=== PATIENT | female | born 1995 ===

== ENCOUNTER 2021-06-27 23:03 | Emergency (ER) | payer OTHER ==
--- OUTSIDE RECORDS SUMMARY | 2021-06-27 23:06 | XMS REPORT | Continuity of Care Document ---
:1995 Author Organization [facility] t Address [address] [place] [address] [place] [address] Care Team Providers Name Role Phone Yrn Hanson Primary Care Physician Antonieta Hanley Attending Clinician Unavailable Mateo CALHOUN, Yrn Attending Clinician Pedro BROOKS A Attending Clinician Provider, Temp Attending Clinician Unavailable Juan SANABRIA Attending Clinician Unavailable Faculty, [facility] M[facility] Attending Clinician Unavailable Doctor Unassigned, Name Attending Clinician Unavailable G_Papмарина Attending Clinician Unavailable Antonieta Hanley Admitting Clinician Unavailable Kirstie Admitting Clinician Unavailable Payers Payer Name Policy Type Policy Number Effective Date Expiration Date John delarosa [facility] [id number] 2016 00:00:00 [employer] (MEDICAID HMO) Problems Condition Condition Condition Status Onset Resolution Last Treating Co mments Source Name Details Category Date Date Treatment Clinician Date Urinary Urinary Disease Active Univers incontinen incontinen 6-22 it y of ce, ce, 00:00: [place] unspecifie unspecifie 00 Me dical d type d type Branch Vaginal Vaginal Disease Active Univers odor odor 6-22 ity of 00:00: [place] 00 [facility] COVID-19 COVID-19 Disease Active 2019-07 Unive rs virus IgG virus IgG 1-20 ity of antibody antibody 00:00: [place] detected detected 00 Medica l Branch History of History of Disease Active 2019-07 U nivers substance substance - ity of abuse abuse 00:00: [place] [facility] History of History of Disease Active 2013-07 U nivers depression depression 1-20 it y of 00:00: [place] [facility] Chlamydia Chlamydia Disease Active Uni vers trachomati trachomati 2-26 it y of s s 00:00: [place] infection infection [facility] of lower of lower Branch genitourin genitourin robert sites robert sites Tobacco Tobacco Disease Active Univers use use 5- ity of disorder disorder 00:00: [address] Generalize Generalize Disease Active U nivers d anxiety d anxiety 11-25 ity of disorder disorder 00:00: [address] Allergies, Adverse Reactions, Alerts Allergy Allergy Status Severity Reaction(s) Onset Inactive Treating Comm ents Source Name Type Date Date Clinician coconut FA Active SV [facility] 08-25 [place] 00:00: [address] coconut FA Active SV THROAT [facility] CLOSES/RASHE 08-25 West S 00:00: [address] NO KNOWN Drug Active Univers ALLERGIE Class ity of S [facility] Social History Social Habit Start Date Stop Date Quantity Comments Source History of tobacco 2009-03-09 Cigarette Smoker University of use 00:00:00 [facility] Exposure to Not sure University of SARS-CoV-2 (event) [facility] Alcohol intake 2021-06-03 2021-06-03 Current University of 00:00:00 00:00:00 non-drinker of [facility] alcohol Branch (finding) Tobacco Comment 2020-06-13 2020-06-13 1/2 pack a day Unive rsity of 00:00:00 00:00:00 [facility] Tobacco use and 2012-11-25 2012-11-25 Never used Universit y of exposure 00:00:00 00:00:00 [facility] Cigarettes smoked 2012-11-25 2012-11-25 Univers ity of current (pack per 00:00:00 00:00:00 [facility] ) - Reported Branch Cigarette 2012-11-25 2012-11-25 University of pack-years 00:00:00 00:00:00 [facility] Sex Assigned At [birth year] Universit y of 00:00:00 00:00:00 [facility] Smoking Status Start Date Stop Date Source Current every day smoker 2012-11-25 00:00:00 Uni versity of [facility] Medications Ordered Filled Start Stop Current Ordering Indication Dosage Frequency Signature Comments Components Source Medication Medication Date Date Medication? Clinician (SIG) Name Name bentley 2020-07- Yes [id number] 1000mg Take 2 Univers n 08-04 tablets by ity of (ZITHROMAX) 00:00: 05:59 mouth once [place] 500 mg 00 :00 now for 1 Medical tablet dose. Branch metroNIDAZO 2020-07- Yes [id number] 500mg Take 1 Univers LE 500 mg 08-03 tablet by ity of tablet 00:00: 05:59 mouth 2 [place] 00 :00 (two) Medical times Branch daily for 7 days. metroNIDAZO 2020-07- Yes [id number] 500mg Take 1 Univers LE 500 mg 08-03 tablet by ity of tablet 00:00: 05:59 mouth 2 [place] 00 :00 (two) Medical times Branch daily for 7 days. metroNIDAZO 2020-07- Yes [id number] 500mg Take 1 Univers LE 500 mg 08-03 tablet by ity of tablet 00:00: 05:59 mouth 2 [place] 00 :00 (two) Medical times Branch daily for 7 days. metroNIDAZO 2020-07- No [id number] 500mg Take 1 Univers LE 500 mg 08-03 tablet by ity of tablet 00:00: 00:00 mouth 2 [place] 00 :00 (two) Medical times Branch daily for 7 days. albuterol 2019-07 Yes [id number] 2{puff} Inhale 2 Univers 90 1-19 Puffs ity of mcg/actuati 00:00: every 6 Rizwan as on inhaler 00 (six) Medical hours as Branch needed for Wheezing or Shortness of Breath. albuterol 2019-07 Yes [id number] 2{puff} Inhale 2 Univers 90 1-19 Puffs ity of mcg/actuati 00:00: every 6 Rizwan as on inhaler 00 (six) Medical hours as Branch needed for Wheezing or Shortness of Breath. albuterol 2019-07 Yes [id number] 2{puff} Inhale 2 Univers 90 1-19 Puffs ity of mcg/actuati 00:00: every 6 [place]izwan as on inhaler 00 (six) Medical hours as Branch needed for Wheezing or Shortness of Breath. Immunizations Ordered Immunization Filled Immunization Date Status Commen ts Source Name Name [facility] 2018-04-27 Completed University of 00:00:00 [facility] TDAP 2018-04-27 Completed University of 00:00:00 [facility] TDAP 2018-04-27 Completed University of 00:00:00 [facility] HPV 2009-08-09 Completed University of 00:00:00 [facility] HEPATITIS A 2009-08-09 Completed University of 00:00:00 [facility] HPV 2009-08-09 Completed University of 00:00:00 [facility] HEPATITIS A 2009-08-09 Completed University of 00:00:00 [facility] HPV 2009-08-09 Completed University of 00:00:00 [facility] HEPATITIS A 2009-08-09 Completed University of 00:00:00 [facility] HPV 2008-11-23 Completed University of 00:00:00 [facility] HPV 2008-11-23 Completed University of 00:00:00 [facility] HPV 2008-11-23 Completed University of 00:00:00 [facility] HEPATITIS A 2008-10-30 Completed University of 00:00:00 [facility] Meningococcal 2008-10-30 Completed University of Vaccine 00:00:00 [facility] Td 2008-10-30 Completed University of 00:00:00 [facility] Varicella 2008-10-30 Completed University of (varivax)(chicken 00:00:00 [place] M edical pox) Branch HEPATITIS A 2008-10-30 Completed University of 00:00:00 [facility] Meningococcal 2008-10-30 Completed University of Vaccine 00:00:00 [facility] Td 2008-10-30 Completed University of 00:00:00 [facility] Varicella 2008-10-30 Completed University of (varivax)(chicken 00:00:00 [facility] edical pox) Branch HEPATITIS A 2008-10-30 Completed University of 00:00:00 [facility] Meningococcal 2008-10-30 Completed University of Vaccine 00:00:00 [facility] Td 2008-10-30 Completed University of 00:00:00 [facility] Varicella 2008-10-30 Completed University of (varivax)(chicken 00:00:00 [facility] edical pox) Branch Rubella 2008-09-11 Completed University of 00:00:00 [facility] HPV 2008-09-11 Completed University of 00:00:00 [facility] Rubella 2008-09-11 Completed University of 00:00:00 [facility] HPV 2008-09-11 Completed University of 00:00:00 [facility] Rubella 2008-09-11 Completed University of 00:00:00 [facility] HPV 2008-09-11 Completed University of 00:00:00 [facility] Vital Signs Vital Name Observation Time Observation Value Comments Source Systolic blood 2021-06-03 16:51:00 126 mm[Hg] Univer sity of pressure [facility] Diastolic blood 2021-06-03 16:51:00 85 mm[Hg] Unive rsity of [facility] Heart rate 2021-06-03 16:51:00 95 /min [facility] Body temperature 2021-06-03 16:51:00 36.67 Kayla [facility] [place] [facility] Respiratory rate 2021-06-03 16:51:00 18 /min [facility] Body height 2021-06-03 16:51:00 175.3 cm [facility] Body weight 2021-06-03 16:51:00 95.437 kg [facility] BMI 2021-06-03 16:51:00 31.07 kg/m2 [facility] Procedures Procedure Date / Time Performed Performing Clinician Mckenna tineo [id number] 2020-08-28 00:00:00 [facility] [id number] 2020-08-28 00:00:00 [facility] Encounters Start End Encounter Admission Attending Care Care Encounter Source Date/Time Date/Time Type Type Clinicians Facility Department ID 2020-08-25 Inpatient Nguy[facility]n [facility] [id number] [facility] 03:19:00 Ratna [id number] [facility] 2021-06-06 2021-06-06 Telephone Mateo [facility] [id number] [facility] 00:00:00 00:00:00 Yuridia Pool ETCHER APPRENTICE [id number] it y of REGIONAL [id number] [place] as MATERNAL [id number] Med ical & CHILD [address] [place] [address] 2021-06-04 2021-06-04 [facility] [id number] [facility] 00:00:00 00:00:00 Management Heather Martinez ETCHER APPRENTICE [id number] ity of REGIONAL [id number] [place] as MATERNAL [id number] Med ical & CHILD [address] [place] [address] 2021-06-03 2021-06-03 Office Provider, [facility] 1 .2.840.114 [id number] Univers 10:42:58 11:27:45 Visit Heather Sanabria ETCHER APPRENTICE [id number] 0 ity of REGIONAL [id number] [place]iz[place] as MATERNAL [id number] Med ica & CHILD [address] [place] [address] 2021-06-03 2021-06-03 Outpatient Shalonda SANABRIA [facility] [id number] [facility] 10:00:00 11:27:45 HEATHER jean [facility] 2020-08-25 2020-08-25 Outpatient LINDA HanleyWU REFE [id number] [facility] 04:49:00 04:49:[id number] [facility] 2020-08-09 2020-08-09 Telephone Mateo [facility] 1.2.840.114 [id number] 00:00:00 00:00:00 Yuridia Pool ETCHER APPRENTICE [id number] REGIONAL [id number] MATERNAL [id number] & CHILD [address] [place] [address] 2020-07-25 2020-07-25 [facility] 1.2.160.410 [id number] 00:00:00 00:00:00 (Out) Yuridia N ETCHER APPRENTICE [id number] REGIONAL [id number] MATERNAL [id number] & CHILD [address] [facility] 2020-06-24 2020-06-24 [facility] 1.2.840.114 [id number] 08:31:43 09:01:43 ne Visit [facility] Rmchp ETCHER APPRENTICE 350.1.13.10 [facility] REGIONAL 4.2.7.2.686 MATERNAL [id number] & CHILD [address] [facility] 2020-06-19 2020-06-19 Telephone [facility] 1.2.840.114 [id number] 00:00:00 00:00:00 Yuridia N ETCHER APPRENTICE [id number] REGIONAL 4.2.7.2.686 MATERNAL [id number] & CHILD [address] [facility] 2020-06-17 2020-06-17 [facility] [id number] 00:00:00 00:00:00 Yuridia N ETCHER APPRENTICE [id number] REGIONAL 4.2.7.2.686 MATERNAL [id number] & CHILD 107 [facility] 2020-06-14 2020-06-14 [facility] 1.2.840.114 [id number] 00:00:00 00:00:00 Yuridia N ETCHER APPRENTICE [id number] REGIONAL [id number] MATERNAL [id number] & CHILD 107 [facility] 2020-06-13 2020-06-13 Initial [facility] [id number] 13:46:41 14:44:05 Yuridia N ETCHER APPRENTICE 350.1.13.10 Visit REGIONAL 4.2.7.2.686 MATERNAL [id number] & CHILD 107 [facility] 2020-06-13 2020-06-13 Orders Doctor GARCIA 1.2.840.114 [id number] 00:00:00 00:00:00 Only Unassigned, MICHEL 350.1.13.10 [place] [facility] 4.2.7.2.686 [id number] 2020-04-08 2020-04-08 Outpatient G_Pappas [facility] 2019 [place] 02:34:00 02:34:00 [facility] 2020-04-08 2020-04-08 Outpatient G_Pappas [facility] 2019 [place] 02:34:00 02:34:00 [facility] 2020-04-08 2020-04-08 Outpatient G_Pappas [facility] 2019 [place] 02:34:00 02:34:00 1014 [facility] 2020-01-16 2020-01-16 Patient Doctor [facility] 1.2.840.114 [id number] 00:00:00 00:00:00 Secure Msg Unassigned, ETCHER APPRENTICE [id number] [place] [facility] [id number] MATERNAL [id number] & CHILD 107 [facility] 2019-03-13 2019-03-13 Telephone Mateo [facility].2.840.114 [id number] 00:00:00 00:00:00 Yuridia Pool ETCHER APPRENTICE [id number] [facility] [id number] MATERNAL [id number] & CHILD 107 [facility] 2019-03-09 2019-03-09 Office [facility] [id number] 09:43:57 13:23:04 Visit Yuridia Pool ETCHER APPRENTICE 350.1.13.10 [place] [id number] MATERNAL [id number] & CHILD 107 [facility] Results Test Description Test Time Test Comments Results Result Comments Source PLACENTA THIRD TRIMESTER 2020-09-02 08:34:00 Test Item Value Reference Range Interpretation Comme nts PLACENTA RUN DATE: THIRD 09/02/20 [facility] PAGE 1 RUN TIME: 1525 TRIMESTER Specimen Inquiry RUN USER: INTERFACE (test code = PLACIII) PATIENT: ADITYA HOROWITZ LOC: KWADWO U #: [id number] AGE/SX: ROOM: [facility] RE08/25/20REG DR: Myranda Rebollar MD : 89 BED: A DIS: 08/31/20 STATUS: DIS IN TLOC: SPEC #: [id number] RECD: STATUS: KIRK BETY #: [id number] LANCE: 08/28/20- SUBM DR: Myranda Rebollar MD ENTERED: 08/29/20 SP TYPE: PLACIII JOSE CARLOS DR: ORDERED: LEVEL V SURGICA CODES: [id number] - PLACENTA, NOS PROCEDURES: LEVEL V SURGICA (Incomplete) TISSUES: PLACENTA, NOS - PLACENTA CLINICAL HISTORY 25 year old, IUP @ 34.2 weeks, section , NRFHT (magy) FINAL DIAGNOSIS Placenta, 34.2 weeks gestational age, section: - third trimester placenta, 505 gms (greater than 90th percentile) - small villous infarcts and intervillous thrombi - mild chronic deciduitis - meconium macrophages within mem branes - delayed villous maturation - velamentously inserted trivascular umbilical cord a nd membranes free of inflammation CPT: 54068 lsh/wpd GROSS DESCRIP TION The specimen was received in a container, labeled with the patient's name, unit number and josie gnated "placenta". The following attributes are observed: Cord insertion: Velamentous cord insertion Cord length: 35 cm Number of vessels: 3 Cord color: Gillespie- white Other cord findings: None surface findings: Blue-vargas, wrinkled, glistening Vasculature: Unremarkable vasculature Membranes rupture site: 3 cm to margin Membrane color: Gillespie-pink Other membrane findings: Semi-translucent The erich ed placental weight: 505 gm CONTINUED ON NEXT PAGE RUN DATE: 09/02/20 [facility] PAGE 2 RUN TIME: 1525 Specimen Inquiry RUN USER: INTERFACE SPEC #: [id number] PATIENT: ADITYA HOROWITZ #[id number] (Continued) GROSS DESCRIPTION (Continued) Disk measurement: 16 x 15 x 4 cm in greatest dimension Accesso ry lobes: None Maternal surface: Lobulated and focally disrup adam, completeness cannot be determined Parenchyma: Red-brown and spongy Parenchyma lesions: Multiple gillespie-yellow to pink lesions a re identified ranging from 0.3 to 2.5 cm at the periphery and involving less than 10% of the tota l cut surface Cassettes: A1 through A4 jania 08/29/20 Signed Maureen Turcios MD 09/02/20 0834 END OF REPORT HGB [id number] 07:34:00 Test Item Value Reference Range Interpretation Comments HEMOGLOBIN (test code = HGB) 9.5 g/dL 10.1-13.8 L HEMATOCRIT (test code = HCT) 32.2 % 32.5-41.8 L CAPILLARY BLOOD [id number] 15:49:00 Test Item Value Reference Range Interpretation Comments CAPILLARY BLOOD GAS PH (test code 7.064 7.35-7.45 LL = PHC) CAPILLARY BLOOD GAS PCO2 (test 94.7 mmHg code = PCO2C) CAPILLARY BLOOD GAS PO2 (test code 13.6 mmHg = PO2C) CBG HCO3 (test code = HCO3C) 26.5 meq/L CBG BASE EXCESS (test code = BEC) -6.4 CAPILLARY BLOOD GAS TYPE (test CBLV code = TYPEC) CAPILLARY BLOOD GAS FIO2 (test 21.0 % code = FIO2C) CAPILLARY BLOOD [id number] 15:48:00 Test Item Value Reference Range Interpretation Comments CAPILLARY BLOOD GAS PH (test code 6.972 7.35-7.45 LL = PHC) CAPILLARY BLOOD GAS PCO2 (test 104.9 mmHg code = PCO2C) CBG HCO3 (test code = HCO3C) 23.7 meq/L CBG BASE EXCESS (test code = BEC) -10.7 CAPILLARY BLOOD GAS TYPE (test CBLA code = TYPEC) CAPILLARY BLOOD GAS FIO2 (test 21.0 % code = FIO2C) CBC W/AUTO [id number] 11:23:00 Test Item Value Reference Range Interpretation Comments WHITE BLOOD CELL (test code = WBC) 14.4 K/mm3 6.5-12.3 H RED BLOOD CELL (test code = RBC) 3.27 M/mm3 3.51-4.69 L HEMOGLOBIN (test code = HGB) 9.8 g/dL 10.1-13.8 L HEMATOCRIT (test code = HCT) 31.4 % 32.1-42.1 L MEAN CELL VOLUME (test code = MCV) 96 fL 84.1-94.8 H MEAN CELL HGB (test code = MCH) 30.0 pg 27-35 N MEAN CELL HGB CONCETRATION (test 31.2 gm/dL 32.2-34.1 L code = MCHC) RED CELL DISTRIBUTION WIDTH (test 14.1 % 12.4-16.5 N code = RDW) PLATELET COUNT (test code = PLT) 275 K/mm3 133-385 N MEAN PLATELET VOLUME (test code = 9.9 fl 9.1-12.7 N MPV) NEUTROPHIL % (test code = NT%) 74.3 % 56.5-79.4 N LYMPHOCYTE % (test code = LY%) 13.5 % 14.3-34.3 L MONOCYTE % (test code = MO%) 8.8 % 5.1-10.4 N EOSINOPHIL % (test code = EO%) 0.3 % 0.1-3.0 N BASOPHIL % (test code = BA%) 0.3 % 0.1-1.0 N NEUTROPHIL # (test code = NT#) 10.7 K/mm3 LYMPHOCYTE # (test code = LY#) 2.0 K/mm3 MONOCYTE # (test code = MO#) 1.3 K/mm3 EOSINOPHIL # (test code = EO#) 0.05 K/mm3 BASOPHIL # (test code = BA#) 0.0 K/mm3 RBC MORPHOLOGY REQUIRED (test code NORMAL NORMAL = RBCM) PLATELET MORPHOLOGY REQUIRED (test NORMAL NORMAL code = PLTMR) AMPHETAMINE CONFIRMATION [id number] 14:40:00 Test Item Value Reference Range Interpretation Comments DRUG CONFIRMATION BY POSITIVE NEGATIVE A Drug(s) Identified: GC/MS (test code = amphetami ne amount 2416 DRUGCON) ng/mL methamphetamine >20,000 ng/mL G C/MS Cutoff: 1000. GLYCOSYLATED HEMOGLOBIN (HA1C)2020-08-27 14:27:00 Test Item Value Reference Range Interpretation Comments GLYCOSYLATED HEMOGLOBIN 5.7 % 4.8-5.6 H Prediabetes: (HA1C) (test code = 5.7 - 6. 4 GLYHGB) Diabetes: >6.4 Glycemic contro l for adults with leatha betes: <7.0Performed A t: HD [facility] [address] [id number] mariana [place] MD Ph:[phone] STING PERFORMED AT: [phone] Molina Dawkins COMPREHENSIVE METABOLIC [id number] 06:42:00 Test Item Value Reference Range Interpretation Comments SODIUM (test code = NA) 136 mEq/L 135-145 N POTASSIUM (test code = K) 4.7 mEq/L 3.5-5.0 N CHLORIDE (test code = CL) 103 mEq/L 100-115 N CARBON DIOXIDE (test code = CO2) 24 mEq/L 22-31 N ANION GAP (test code = GAP) 13.80 10-20 N GLUCOSE (test code = GLU) 129 mg/dL 65-110 H BLOOD UREA NITROGEN (test code = 12 mg/dL 7-18 N BUN) GLOMERULAR FILTRATION RATE (test 101 ml/min >60 N code = GFR) CREATININE (test code = CREAT) 0.7 mg/dL 0.5-1.0 N TOTAL PROTEIN (test code = PROT) 5.6 gm/dL 6.3-8.2 L ALBUMIN (test code = ALB) 1.9 gm/dL 3.4-4.8 L CALCIUM (test code = CA) 6.7 mg/dL 8.4-10.2 L BILIRUBIN TOTAL (test code = 0.2 mg/dL 0.2-1.0 BILT) SGOT/AST (test code = AST) 12 units/L 15-37 L SGPT/ALT (test code = ALT) 15 units/L 12-78 N ALKALINE PHOSPHATASE TOTAL (test 136 units/L 46-116 H code = ALKP) CBC W/AUTO [id number] 06:34:00 Test Item Value Reference Range Interpretation Comments WHITE BLOOD CELL (test 15.0 K/mm3 6.6-12.1 H code = WBC) RED BLOOD CELL (test 3.50 M/mm3 3.45-5.01 N code = RBC) HEMOGLOBIN (test code = 10.5 g/dL 10.7-13.9 L HGB) HEMATOCRIT (test code = 36.7 % 32.1-42.1 N HCT) MEAN CELL VOLUME (test 105 fL 84.1-94.8 H Resul ts verified by code = MCV) repeat analysis MEAN CELL HGB (test code 30.0 pg 27-35 N = MCH) MEAN CELL HGB 28.6 gm/dL 32.2-34.1 L CONCETRATION (test code = MCHC) RED CELL DISTRIBUTION 13.8 % 12.4-16.5 N WIDTH (test code = RDW) PLATELET COUNT (test 316 K/mm3 133-385 N code = PLT) IMMATURE PLATELET 2.3 % 0.0-10.8 N FRACTION (test code = IPF) MEAN PLATELET VOLUME 9.9 fl 9.1-12.7 N (test code = MPV) NEUTROPHIL % (test code 81.2 % 56.5-79.4 H = NT%) LYMPHOCYTE % (test code 11.1 % 14.3-34.3 L = LY%) MONOCYTE % (test code = 6.2 % 5.1-10.4 N MO%) EOSINOPHIL % (test code 0.1 % 0.1-3.0 N = EO%) BASOPHIL % (test code = 0.3 % 0.1-1.0 N BA%) NEUTROPHIL # (test code 12.2 K/mm3 = NT#) LYMPHOCYTE # (test code 1.7 K/mm3 = LY#) MONOCYTE # (test code = 0.9 K/mm3 MO#) EOSINOPHIL # (test code 0.01 K/mm3 = EO#) BASOPHIL # (test code = 0.1 K/mm3 BA#) RBC MORPHOLOGY REQUIRED NORMAL NORMAL (test code = RBCM) PLATELET MORPHOLOGY NORMAL NORMAL REQUIRED (test code = PLTMR) - US FLW [id number] 09:18:00 [facility] 1995 Sex: F Patient Name: ADITYA HOROWITZ Unit No: [id number] EXAMS: [place]: [id number] [address] [facility] [address] [place] [address] LIMITED OBSTETRICAL ULTRASOUND REPORT Pat. Name:ADITYA HOROWITZ Pat. No: [id number] Study Date: 08/25/2020 9:03am , Age: 8 1995,25 Pregnancies: 2, Para 0100 LMP: Unknown GA by US: 33w6d GA Selected: 33w6d (Sonographic) LETICIA: 10/07/2020 Referring MD: RATNA HANLEY Experimental Display Builder: Janet Mullen RDMS CPT4: USPREGFU Admitting MD: ANNE MARIE HANLEY Hist/Ind: NO CARE SCAN 1 MEASUREMENTS AGE GROWTH EVALUATION Measurement GA Range Srce %for GA Ratios ----- ---- ------- BPD 8.4 cm 34w2d (20g8j-95c9w) Hadl BPD 56% FL/BPD 0.80 (0.71 - 0.87) HC 30.5 cm 33w4d (64u3y-86n3i) Hadl HC 46% FL/AC 0.22 (0.20 - 0.24) APD 9.8 cm APD HC/AC 1.01 (0.95 - 1.13) TAD 9.4 cm TAD CI 0.80 (0.70 - 0.86) AC 30.2 cm 34w2d (97i8o-09o5s) Hadl AC 57% FL 6.7 cm 34w2d (55r7z-17c4c) Hadl FL 57% HL 5.6 cm 32w4d (26k1u-92l5c) Charles HL 29% GA for sonogram 33w6d (37l7x-33k0t) Weight Estimate: based on (BPD,HC,AC,FL) Hadlock Weight:2365 gm (4769-4670) Hadlo : 5lbs, 3oz Normal: 2178 gm (5706-8784) Brenn Wt% 61% for 33.8 wks Cervical Length: 2.4 cm Heart Rate: 143 bpm Amniotic Fluid Index: 08.6cm (08.1-24.7) Q1: 0.0cm Q2: 4.6cm Q3: 0.0cm Q4: 4.0cm CLINICAL SUMMARY Type of Gestation: Warner Intrauterine in vertex presentation. motion and organs seen: heart motion seen body and limb movements seen Four chamber heart observed Stomach seen. Renal Fossa observed tone noted breathing movements observed The umbilical cord appears to wrap around the neck suggesting a nuchal cord. [facility] NAME: ADITYA HOROWITZ Radiology Department PHYS: Ratna Bhatia MD [address] : 1995 AGE: 25 SEX: F [place], [place] [address] LOC: F.Misha6 A PHONE #: [phone] EXAM DATE: 08/25/2020 STATUS: ADM IN FAX #: [phone] RAD NO: Page 1 Signed Report (CONTINUED) Patient Name: ADITYA HOROWITZ Unit No: [id number] EXAMS: CPT CODE: [id number] [place] [address]<Continued> Placental location: Anterior Placental maturity : Grade 2 There isno evidence of placenta previa. Amniotic fluid volume is within the lower range of normal. Uterus and adnexa: No significant abnormality is seen. Cervix length short, measuring 2.4 cm. Thank you for allowing us to participate in the care of this patient. Usama Craig M.D. Electronic Signature 08/25/2020 09:18am at 0918 Reported and signed by: Usama Craig MD CC: Ratna Hanley MD Technologist: Janet Mullen RDMS Probe: Trnscrbd D/ (0918) [email or web address] Orig Print D/T: S: 08/27/2020 (1035) [facility] NAME: ADITYA HOROWITZ Radiology Department PHYS: Ranta Bhatia MD [address] : 1995 AGE: 25 SEX: F [place], [place] [address] LOC: [id number].5046 A PHONE #: [phone] EXAM DATE: 08/25/2020 STATUS: ADM IN FAX #: [phone] RAD NO: Page 2 Signed Report Patient Name: ADITYA HOROWITZ Unit No: [id number] EXAMS: CPT CODE: [id number] US FLW UP [id number] <Continued> [facility] NAME: ADITYA HOROWITZ Radiology Department PHYS: Ratna Bhatia MD [address] : 1995 AGE: 25 SEX: F [place], [place] [address] LOC: Delfino A PHONE #: [phone] EXAM DATE: 08/25/2020 STATUS: ADM IN FAX #: [phone] RAD NO: Page 3 Signed ReportAG HEPATITIS B [id number] 06:06:00 Test Item Value Reference Range Interpretation Comments AG HEPATITIS B SURFACE (test code NONREACTIVE NONREACTIVE = HBSAG) AB HEPATITIS C [id number] 06:06:00 Test Item Value Reference Range Interpretation Comments AB HEPATITIS C (test code = NONREACTIVE NONREACTIVE HCVAB) SIGNAL TO CUTOFF (test code = <0.02 <0.80 N CUTOFF) AB [id number] 06:06:00 Test Item Value Reference Range Interpretation Comments AB TREPONEMA (test code = TREPAB) NONREACTIVE NONREACTIVE AB HIV 1 06:06:00 Test Item Value Reference Range Interpretation Comments AB HIV 1 2 (test NONREACTIVE NONREACTIVE Done by John leblanc Centaur code = CKS40ML) 4th Gen HIV Ag/Ab Combo Screen AG HEPATITIS B [id number] 05:29:00 Test Item Value Reference Range Interpretation Comments AG HEPATITIS B SURFACE (test code NONREACTIVE NONREACTIVE = HBSAG) AB HEPATITIS C [id number] 05:29:00 Test Item Value Reference Range Interpretation Comments AB HEPATITIS C (test code = HCVAB) NONREACTIVE SIGNAL TO CUTOFF (test code = CUTOFF) <0.80 AB [id number] 05:29:00 Test Item Value Reference Range Interpretation Comments AB TREPONEMA (test code = TREPAB) NONREACTIVE NONREACTIVE AB HIV 1 05:29:00 Test Item Value Reference Range Interpretation Comments AB HIV 1 2 (test code = LKD70NI) NONREACTIVE COVID 19 Asymptomatic IH [id number] 05:09:00 Test Item Value Reference Range Interpretation Comments COVID 19 NEGATIVE NEGATIVE This test has b een Asymptomatic IH AG authorize d only for the (test code = detection ofpro teins from COVNONPUIAG) SARS-CoV-2, not for any other viruses orpathogens. N egative results should be treated as presumptive andconfirmed wi th a molecular assay , if necessary for patientmanageme nt. Negative result s do not rule out COVID- 19 andshould not b e used as the sole basis for treatment orpat ient management deci sions, including infec tion controldecision s. Negative result s should be considered i n thecontext of a patient's recent exposure s, history and thepresence of clinical signs and symptoms consis tent withCOVID-19. T his test has not been FD A cleared or approved; th e test hasbeen authori zed by FDA under an Emerge ncy Use Authorization(E UA) for use by laborato timoteo certified under the CLIA thatmeet the re quirements to perform mode rate, high or waivedcomple xity tests. This carlos t is authorized for use at thePoint of Car e (POC), i.e., in patien t care settingsoperati ng under a CLIA Certificat e of Waiver, Certifi ze ofCompliance, o r Certificate of Accreditation. This test is only authori zed for the duration of thedeclaration that circumstances e xist justifying theauthorizatio n of emergency use o f in vitro diagnostic test sfor detection and/o r diagnosis of CO VID-19 under Nebvqml35 4(b)(1) of the Act, 21 U.S .C. 360bbb-3(b)(1), unless theauthorizatio n is terminated or r evoked sooner. COMPREHENSIVE METABOLIC [id number] 04:55:00 Test Item Value Reference Range Interpretation Comments SODIUM (test code = NA) 138 mEq/L 135-145 N POTASSIUM (test code = K) 4.0 mEq/L 3.5-5.0 N CHLORIDE (test code = CL) 103 mEq/L 100-115 N CARBON DIOXIDE (test code = CO2) 24 mEq/L 22-31 N ANION GAP (test code = GAP) 14.70 10-20 N GLUCOSE (test code = GLU) 128 mg/dL 65-110 H BLOOD UREA NITROGEN (test code = 12 mg/dL 7-18 N BUN) GLOMERULAR FILTRATION RATE (test 76 ml/min >60 N code = GFR) CREATININE (test code = CREAT) 0.9 mg/dL 0.5-1.0 N TOTAL PROTEIN (test code = PROT) 5.9 gm/dL 6.3-8.2 L ALBUMIN (test code = ALB) 2.0 gm/dL 3.4-4.8 L CALCIUM (test code = CA) 7.9 mg/dL 8.4-10.2 L BILIRUBIN TOTAL (test code = 0.1 mg/dL 0.2-1.0 L BILT) SGOT/AST (test code = AST) 18 units/L 15-37 N SGPT/ALT (test code = ALT) 17 units/L 12-78 N ALKALINE PHOSPHATASE TOTAL (test 146 units/L 46-116 H code = ALKP) URIC [id number] 04:55:00 Test Item Value Reference Range Interpretation Comments URIC ACID (test code = URIC) 4.5 mg/dL 2.6-6.0 N LACTIC DEHYDROGENASE(LDH)2020-08-25 04:55:00 Test Item Value Reference Range Interpretation Comments LACTIC DEHYDROGENASE(LDH) (test 229 units/L 81-234 N code = LDH) UR PROTEIN/CREATININE [id number] 04:51:00 Test Item Value Reference Range Interpretation Comments UR PROTEIN RANDOM (test code = 28.7 mg/dL PROTU) UR CREATININE RANDOM (test 35.3 mg/dL code = CREATU) PROTEIN/CREATININE RATIO (test 810.0 mg/gcrea <200 H code = P/CRATIO) DRUGS OF ABUSE [id number] 04:50:00 Test Item Value Reference Range Interpretation Comments UR COCAINE (test code = NEGATIVE NEGATIVE DETE CTION CUT OFF: COCAU) 150 ng/mL UR CANNABINOIDS (test NEGATIVE NEGATIVE DETECT ION CUT OFF: code = CANU) 50 ng/mL UR AMPHETAMINE (test code POSITIVE NEGATIVE A RE SULTS CALLED TO = AMPHU) LAURIE.READ BACK & CONFIRMED? YES. BY F.LAB.IR1 08/25 0450. DETECTION CUT OFF: 500 ng/mL UR BARBITURATE QUAL (test NEGATIVE NEGATIVE DE TECTION CUT OFF: code = BARBQLU) 200 ng/mL UR BENZODIAZEPINE (test NEGATIVE NEGATIVE DETE CTION CUT OFF: code = BENZU) 150 ng/mL UR OPIATES QUAL (test NEGATIVE NEGATIVE DETECT ION CUT OFF: code = OPIAQLU) 100 ng/mL UR PHENCYCLIDINE (PCP) NEGATIVE NEGATIVE DETEC TION CUT OFF: (test code = PHENCU) 25 ng/m L UA RFLX MICR CULT IF [id number] 04:44:00 Test Item Value Reference Range Interpretation Comments UA COLOR (test code = YELLOW YELLOW COLU) UA APPEARANCE (test code CLOUDY CLEAR A = APPU) UA GLUCOSE DIPSTICK (test NEGATIVE NEG code = DGLUU) UA BILIRUBIN DIPSTICK NEGATIVE NEG (test code = BILU) UA KETONE DIPSTICK (test NEGATIVE NEG code = KETU) UA SPECIFIC GRAVITY (test 1.009 1.001-1.035 N code = SGU) UA BLOOD DIPSTICK (test NEG NEG code = MAXWELL) UA PH DIPSTICK (test code 6.0 5-9 = KAYLEIGH) UA PROTEIN DIPSTICK (test NEGATIVE NEG code = PROU) UA UROBILINIOGEN DIPSTICK NEGATIVE mg/dL NEG (test code = URO) UA NITRITE DIPSTICK (test NEG NEG code = RAMOS) UA LEUKOCYTE ESTERASE 3+ NEG A DIPSTICK (test code = LEUU) UA WBC (test code = WBCU) 31-40 #/hpf NONE SEEN A UA RBC (test code = RBCU) 6-10 #/hpf NONE SEEN A UA EPITHELIAL CELLS (test TOO NUMEROUS TO CNT RARE-FEW A code = EPIU) #/HPF UA BACTERIA (test code = RARE /HPF RARE-FEW BACU) UA MUCUS (test code = RARE NONE SEEN MUCU) Indication for culture: Suprapubic PainSpecimen Description: CLEAN CATCHCBC W/AUTO [id number] 04:43:00 Test Item Value Reference Range Interpretation Comments WHITE BLOOD CELL (test code = WBC) 13.0 K/mm3 6.6-12.1 H RED BLOOD CELL (test code = RBC) 3.59 M/mm3 3.45-5.01 N HEMOGLOBIN (test code = HGB) 10.8 g/dL 10.7-13.9 N HEMATOCRIT (test code = HCT) 33.1 % 32.1-42.1 N MEAN CELL VOLUME (test code = MCV) 92 fL 84.1-94.8 N MEAN CELL HGB (test code = MCH) 30.1 pg 27-35 N MEAN CELL HGB CONCETRATION (test 32.6 gm/dL 32.2-34.1 N code = MCHC) RED CELL DISTRIBUTION WIDTH (test 13.6 % 12.4-16.5 N code = RDW) PLATELET COUNT (test code = PLT) 306 K/mm3 133-385 N MEAN PLATELET VOLUME (test code = 9.9 fl 9.1-12.7 N MPV) NEUTROPHIL % (test code = NT%) 72.5 % 56.5-79.4 N LYMPHOCYTE % (test code = LY%) 18.2 % 14.3-34.3 N MONOCYTE % (test code = MO%) 7.0 % 5.1-10.4 N EOSINOPHIL % (test code = EO%) 1.0 % 0.1-3.0 N BASOPHIL % (test code = BA%) 0.3 % 0.1-1.0 N NEUTROPHIL # (test code = NT#) 9.4 K/mm3 LYMPHOCYTE # (test code = LY#) 2.4 K/mm3 MONOCYTE # (test code = MO#) 0.9 K/mm3 EOSINOPHIL # (test code = EO#) 0.13 K/mm3 BASOPHIL # (test code = BA#) 0.0 K/mm3 RBC MORPHOLOGY REQUIRED (test code NORMAL NORMAL = RBCM) PLATELET MORPHOLOGY REQUIRED (test NORMAL NORMAL code = PLTMR)
[2021-06-28] MEDS ORDERED: AMOXICILLIN TRIHYDR 250 MG CAP ONE (00:02)
--- NOTE | 2021-06-28 00:06 | ER ---
Nurse's Notes [facility] Name: Sara Darby Age: 26 yrs Sex: Female : 1995 Arrival Date: 06/27/2021 Time: 23:25 Bed 12 Private MD: Diagnosis: Dental caries, unspecified Presentation: 06/27 23:57 Chief complaint: Patient states: I have teeth that are broken off to the gum. Pt ld1 reporting lower left jaw pain. 04/04. Coronavirus screen: At this time, the client does not indicate any symptoms associated with coronavirus-19. Ebola Screen: No symptoms or risks identified at this time. Initial Sepsis Screen: Does the patient meet any 2 criteria? No. Patient's initial sepsis screen is negative. Does the patient have a suspected source of infection? No. Patient's initial sepsis screen is negative. Risk Assessment: Do you want to hurt yourself or someone else? Patient reports no desire to harm self or others. Onset of symptoms was June 27, 2021. 23:57 Method Of Arrival: Ambulatory ld1 23:57 Acuity: SHANNA 4 ld1 Triage Assessment: 23:58 General: Appears in no apparent distress. uncomfortable, Behavior is calm, cooperative, ld1 appropriate for age. Pain: Complains of pain in lower left third molar, lower left second molar and lower left first molar Pain does not radiate. Pain currently is 9 out of 10 on a pain scale. Quality of pain is described as shooting, stabbing, throbbing, Pain began gradually, Is continuous. EENT: Reports pain in lower left third molar, lower left second molar and lower left first molar. Neuro: Level of Consciousness is awake, alert, obeys commands, Oriented to person, place, time, situation, Appropriate for age. Cardiovascular: Capillary refill < 3 seconds Patient's skin is warm and dry. Respiratory: Airway is patent Respiratory effort is even, unlabored, Respiratory pattern is regular, symmetrical. GI: Abdomen is flat, non-distended. : No signs and/or symptoms were reported regarding the genitourinary system. Derm: No signs and/or symptoms reported regarding the dermatologic system. Musculoskeletal: No signs and/or symptoms reported regarding the musculoskeletal system. 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 - Social history:: Smoking status: Patient reports the use of cigarette tobacco products, smokes one pack cigarettes per day. Patient/guardian denies using alcohol, street drugs. - Family history:: not pertinent, pertinent for. Assessment: 06/28 00:13 Reassessment: No changes from previously documented assessment. Patient is alert, bb oriented x 3, equal unlabored respirations, skin warm/dry/pink. pt verbalized understanding of and agrees to plan of care discharge instructions given pt ambulated with steady gait to exit accompanied by family. Vital Signs: 06/27 23:57 BP 127 / 83; Pulse 101; Resp 18; Temp 97.9(O); Pulse Ox 97% on R/A; Weight 95.25 kg; ld1 Height 5 ft. 9 in. (175.26 cm); Pain 9/10; 23:57 Body Mass Index 31.01 (95.25 kg, 175.26 cm) ld1 ED Course: 23:25 Patient arrived in ED. es 23:49 Raghav Lobo MD is Attending Physician. [facility] 23:58 Triage completed. ld1 23:58 Arm band placed on right wrist. ld1 1204 00:06 Sarkis Santa DDS is Referral Physician. jakob 00:15 No provider procedures requiring assistance completed. Patient did not have IV access bb during this emergency room visit. Administered Medications: 00:02 Drug: Amoxicillin 500 mg Route: PO; ld1 00:14 Follow up: Response: No adverse reaction bb Outcome: 00:06 Discharge ordered by . jakob 00:14 Discharged to home ambulatory, with family. bb 00:14 Condition: stable 00:14 Discharge instructions given to patient, Instructed on discharge instructions, follow up and referral plans. medication usage, Demonstrated understanding of instructions, follow-up care, medications, Prescriptions given X 2. 00:15 Patient left the ED. bb Signatures: Raghav Lobo MD MD cha Salyer, Edna es Ballard, Brenda, RN RN bb Dibbern, Chandni, RN RN ld1 Corrections: (The following items were deleted from the chart) 06/27 23:58 23:58 PMHx: None; ld1 ld1 06/28 00:03 06/27 23:57 Pulse 101bpm; Resp 18bpm; Pulse Ox 97% RA; Temp 97.9F Oral; 95.25 kg; ld1 Height 5 ft. 9 in.; BMI: 31.0; Pain 04/04; ld1
--- NOTE | 2021-06-28 00:07 | EDPHYS ---
Physician Documentation [facility] Name: Sara Darby Age: 26 yrs Sex: Female : 1995 Arrival Date: 06/27/2021 Time: 23:25 Bed 12 Private MD: ED Physician Raghav Lobo HPI: 06/28 00:00 This 26 yrs old Female presents to ER via Ambulatory with complaints of jakob Toothache. 00:00 The patient presents with lost tooth/teeth, pain, redness. The problem is located in jakob the lower left first molar and lower left third molar. Onset: The symptoms/episode began/occurred 3 day(s) ago. Duration: The symptoms are continuous, and are steadily getting worse. Modifying factors: The symptoms are alleviated by over the counter medications, the symptoms are aggravated by chewing, food. Associated signs and symptoms: The patient has no apparent associated signs or symptoms. Severity of symptoms: At their worst the symptoms were mild, moderate, in the emergency department the symptoms are unchanged. The patient has experienced similar episodes in the past, several times. 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 - Social history:: Smoking status: Patient reports the use of cigarette tobacco products, smokes one pack cigarettes per day. Patient/guardian denies using alcohol, street drugs. - Family history:: not pertinent, pertinent for. ROS: 06/28 00:00 Constitutional: Negative for fever, chills, and weight loss, Eyes: Negative for injury, jakob pain, redness, and discharge, Neck: Negative for injury, pain, and swelling, Cardiovascular: Negative for chest pain, palpitations, and edema, Respiratory: Negative for shortness of breath, cough, wheezing, and pleuritic chest pain, Abdomen/GI: Negative for abdominal pain, nausea, vomiting, diarrhea, and constipation, Back: Negative for injury and pain, : Negative for injury, bleeding, discharge, and swelling, MS/Extremity: Negative for injury and deformity, Skin: Negative for injury, rash, and discoloration, Neuro: Negative for headache, weakness, numbness, tingling, and seizure, Psych: Negative for depression, anxiety, suicide ideation, homicidal ideation, and hallucinations, Allergy/Immunology: Negative for hives, rash, and allergies, Endocrine: Negative for neck swelling, polydipsia, polyuria, polyphagia, and marked weight changes, Hematologic/Lymphatic: Negative for swollen nodes, abnormal bleeding, and unusual bruising. ENT: Positive for dental pain, ear pain. Exam: 00:00 Constitutional: This is a well developed, well nourished patient who is awake, alert, jakob and in no acute distress. Head/Face: Normocephalic, atraumatic. Eyes: Pupils equal round and reactive to light, extra-ocular motions intact. Lids and lashes normal. Conjunctiva and sclera are non-icteric and not injected. Cornea within normal limits. Periorbital areas with no swelling, redness, or edema. Neck: Trachea midline, no thyromegaly or masses palpated, and no cervical lymphadenopathy. Supple, full range of motion without nuchal rigidity, or vertebral point tenderness. No Meningismus. Chest/axilla: Normal chest wall appearance and motion. Nontender with no deformity. No lesions are appreciated. Cardiovascular: Regular rate and rhythm with a normal S1 and S2. No gallops, murmurs, or rubs. Normal PMI, no JVD. No pulse deficits. Respiratory: Lungs have equal breath sounds bilaterally, clear to auscultation and percussion. No rales, rhonchi or wheezes noted. No increased work of breathing, no retractions or nasal flaring. Abdomen/GI: Soft, non-tender, with normal bowel sounds. No distension or tympany. No guarding or rebound. No evidence of tenderness throughout. Back: No spinal tenderness. No costovertebral tenderness. Full range of motion. Female : Normal external genitalia. Skin: Warm, dry with normal turgor. Normal color with no rashes, no lesions, and no evidence of cellulitis. MS/ Extremity: Pulses equal, no cyanosis. Neurovascular intact. Full, normal range of motion. Neuro: Awake and alert, GCS 15, oriented to person, place, time, and situation. Cranial nerves II-XII grossly intact. Motor strength 5/5 in all extremities. Sensory grossly intact. Cerebellar exam normal. Normal gait. Psych: Awake, alert, with orientation to person, place and time. Behavior, mood, and affect are within normal limits. 00:00 ENT: Mouth: Oral mucosa: moist, Gums: noted to have cellulitis, reddened, on the lower left third molar, lower left second molar and lower left first molar, Posterior pharynx: no acute changes, Airway: normal, no evidence of obstruction, Tonsils: are normal in appearance, Uvula: normal, midline, non-edematous, no erythema, swelling, is not appreciated, erythema, is not appreciated, Dental exam: dental caries, the patient wears dentures, pain, that is mild, specifically in the lower left third molar (#17), lower left second molar (#18) and lower left first molar (#19). Vital Signs: 06/27 23:57 BP 127 / 83; Pulse 101; Resp 18; Temp 97.9(O); Pulse Ox 97% on R/A; Weight 95.25 kg; ld1 Height 5 ft. 9 in. (175.26 cm); Pain 9/10; 23:57 Body Mass Index 31.01 (95.25 kg, 175.26 cm) ld1 MDM: 23:49 Patient medically screened. jakob 06/28 00:02 Differential diagnosis: dental caries, gingivitis, dental abscess, pericoronitis. Data jakob reviewed: vital signs, nurses notes. Data interpreted: court recording monitor: not applicable for this patient encounter. rate is 101 beats/min, rhythm is regular, Pulse oximetry: on room air is 97 %. Test interpretation: by ED physician or midlevel provider:. Counseling: I had a detailed discussion with the patient and/or guardian regarding: the historical points, exam findings, and any diagnostic results supporting the discharge/admit diagnosis, the need for outpatient follow up, for definitive care, a dentist. Administered Medications: 00:02 Drug: Amoxicillin 500 mg Route: PO; ld1 00:14 Follow up: Response: No adverse reaction bb Disposition Summary: 06/28/21 00:06 Discharge Ordered Location: Home jakob Problem: new jakob Symptoms: have improved jakob Condition: Stable jakob Diagnosis - Dental caries, unspecified jakob Followup: jakob - With: Private Physician - When: 2 - 3 days - Reason: Recheck today's complaints, Continuance of care, Re-evaluation by your physician Followup: jakob - With: Sarkis Santa DDS - When: 2 - 3 days - Reason: Recheck today's complaints, Re-evaluation by your physician Discharge Instructions: - Discharge Summary Sheet jakob - Dental Caries, Adult jakob - Dental Pain jakob - Dental Pain, [id number] [facility] - Diet and Dental Disease jakob - Dental Caries, Adult, [id number] [facility] Forms: - Medication Reconciliation Form [facility] - Thank You Letter [facility] - Antibiotic Education [facility] - Prescription Opioid Use [facility] Prescriptions: - Amoxicillin 500 mg Oral Capsule - take 1 capsule by ORAL route every 8 hours for 10 days; 30 tablet; Refills: 0, [facility] Product Selection Permitted - Ibuprofen 600 mg Oral Tablet - take 1 tablet by ORAL route every 6 hours As needed take with food; 20 tablet; [facility] Refills: 0, Product Selection Permitted Signatures: Raghav Lobo MD MD cha Dibbern, Lauren, RN RN ld1 Heather Livingston RN bb Corrections: (The following items were deleted from the chart) 06/27 23:58 23:58 PMHx: None; ld1 ld1
[2021-06-28 00:56] VITALS: BP 127/83; TEMP 97.9; O2SAT 97
== END 2021-06-28 00:15 | disposition home or self-care (01) ==
LOC: ER 23:03
DX: K02.9 Dental caries, unspecified (principal); F17.210 Nicotine dependence, cigarettes, uncomplicated
CPT/HCPCS: 99283